=== PATIENT | male | born 1950 | race Caucasian/White ===

== ENCOUNTER 2018-02-03 23:13 | Inpatient (IN) | payer MEDICARE ==
[2018-02-04 00:07] LABS: #Basophils 0.1 thou/uL (0.0-0.2); #Eosinphils 0.3 thou/uL (0.0-0.7); #Monocytes 0.7 thou/uL (0.11-0.59); #Neutrophils 7.5 thou/uL (1.40-6.50); %Basophils 0.7 % (0.0-1.0); %Eosinophils 3.2 % (0.0-10.0); %Lymphocytes 10.2 % (21.0-51.0); %Monocytes 6.8 % (0.0-10.0); %Neutrophils 79.1 % (42.0-75.0); Hemoglobin 15.3 g/dL (14.0-18.0); Mean Corpuscular HGB CONC 32.5 g/dL (32.0-36.0); Mean Corpuscular Hemoglobin 30.7 pg (27.0-31.0); Mean Corpuscular Volume 94.5 fL (78.0-98.0); Mean Platelet Volume 6.2 fL (7.4-10.4); Platelet Count 325 thou/uL (130-400); RBC Distribution Width 12.9 % (11.5-14.5); White Blood Cell (WBC) Count 9.5 thou/uL (4.8-10.8)
--- NOTE | 2018-02-04 00:08 | RAD ---
PORTABLE CHEST: 02/03/18 COMPARISON: 04/26/16 study. HISTORY: Shortness of breath. Heart size is within normal limits. The aorta is tortuous. There is some parenchymal change in the ri ght base which has developed since the prior examination and still has the potential appearance that is more related to scar than an acute infiltrative process. IMPRESSION: Right lower lobe parenchymal change possibly atelectasis or infiltrate but also possibly scar. It is new as compared to the 2016 study. POS: JUANA
[2018-02-04 00:26] LABS: ALT (SGPT) 14 U/L (8-55); AST (SGOT) 19 U/L (5-34); Albumin 4.3 g/dL (3.4-4.8); Alkaline Phosphatase 94 U/L (40-150); Anion Gap 14 mmol/L (10-20); BUN (Urea Nitrogen) 20 mg/dL (8.4-25.7); Bilirubin, Total 0.4 mg/dL (0.2-1.2); CK (CPK) 45 U/L (30-200); Calc. Creatinine Clearance 0 mL/min (70-130); Calcium 9.6 mg/dL (7.8-10.44); Carbon Dioxide 21 mmol/L (23-31); Chloride 103 mmol/L (98-107); Estimated GFR-MDRD 87; Globulin 3.7 g/dL (2.4-3.5); Glucose 108 mg/dL (80-115); Lipase 17 U/L (8-78); Potassium 4.2 mmol/L (3.5-5.1); Sodium 134 mmol/L (136-145)
[2018-02-04 00:59] LABS: Bilirubin Negative (Negative); Blood, Urine Negative (Negative); Clarity CLEAR (Clear); Glucose, Urine (Dipstick) Negative (Negative); Leukocyte Negative (Negative); Nitrite Negative (Negative); Protein, Urine (Dipstick) Negative (Neg-Trace); Urobilinogen 0.2 mg/dL (0.2-1.0)
[2018-02-04] MEDS ORDERED: Fentanyl 100 MCG/2 ML VIAL ONE ×2 (03:10→20:44)
[2018-02-04] MEDS ORDERED: cefTRIAXone\\ROCEPHIN 2 GM VIAL ONE (04:03)
[2018-02-04 07:47] VITALS: BMI 25.8
--- NOTE | 2018-02-04 07:50 | CT ---
CT ANGIO CHEST PERFORMED WITH INTRAVENOUS CONTRAST ENHANCEMENT WITH 3D RECONSTRUCTIONS: HISTORY: Fever. Shortness of breath. History of previous injury. Previous films not available for compariso n. FINDINGS: Subsegmental atelectatic changes are seen in the lung bases. No evidence of any pleural effusion or pneumothorax. Multiple right-sided rib fractures are present, consistent with the history of trauma. The thoracic aorta is normal in caliber. There is fair pulmonary artery opacification. More peripheral vessels cannot be assessed, but I see no CT evidence for pulmonary embolus. IMPRESSION: 1. Multiple acute appearing right-sided rib fractures. No pneumothorax. Subsegmental atelectatic c hanges are seen in the lung bases. 2. No CT evidence for pulmonary embolus. POS: DAVID
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
[2018-02-04] MEDS ORDERED: Ondansetron ODT 4 MG TAB SL PRN (08:25)
[2018-02-04] MEDS ORDERED: HYDROcodone/Acetaminophen 5/325 mg Tablet PO PRN ×2 (08:25)
[2018-02-04] MEDS ORDERED: Ondansetron HCl/PF 4 MG/2 ML Vial IVP PRN ×3 (08:25→21:57)
[2018-02-04] MEDS ORDERED: Fentanyl 100 MCG/2 ML VIAL SLOW IVP PRN (08:27)
[2018-02-04] MEDS ORDERED: Sodium Chloride 0.45% 1,000 ML IV SCH (08:30)
[2018-02-04] MEDS: Piperacillin/Tazobactam 3.375 GM in Sodium Chloride 0.9% 100 ML IVPB SCH ×2 (10:24→19:04)
[2018-02-04] MEDS: D5 1/2 NS w/20 mEq KCL 1,000 ML IV SCH ×2 (10:25→19:04)
[2018-02-04] MEDS ORDERED: ISOVUE-370 76%-LOCM 1 ML ONE (11:40)
[2018-02-04] MEDS ORDERED: Lidocaine 1% PF 5 ML VIAL ONE (13:56)
[2018-02-04] MEDS ORDERED: PHENYLEPHRINE-NS 100 MCG/ML 10 ML SYRINGE ONE (13:56)
[2018-02-04] MEDS ORDERED: ePHEDrine/0.9% NaCl/PF SYRINGE 50 mg/10 ml ONE (13:56)
[2018-02-04] MEDS ORDERED: PROPOFOL 200 MG/20 ML VIAL ONE (13:56)
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
[2018-02-04] MEDS ORDERED: Bupivacaine/Epinephrine 0.25% 30 ML VIAL ONE (21:12)
[2018-02-04] MEDS ORDERED: Promethazine HCl 25 MG/ML VIAL SLOW IVP PRN (21:57)
[2018-02-04] MEDS ORDERED: Promethazine HCl 25 MG/ML VIAL IM PRN (21:57)
[2018-02-05] MEDS: Piperacillin/Tazobactam 3.375 GM in Sodium Chloride 0.9% 100 ML IVPB SCH ×4 (00:27→17:58)
[2018-02-05] MEDS: HYDROcodone/Acetaminophen 7.5/325 mg Tablet PO PRN ×3 (00:38→14:54)
[2018-02-05 05:25] LABS: Anion Gap 10 mmol/L (10-20); BUN (Urea Nitrogen) 14 mg/dL (8.4-25.7); Calc. Creatinine Clearance 96 mL/min (70-130); Calcium 8.4 mg/dL (7.8-10.44); Carbon Dioxide 24 mmol/L (23-31); Chloride 106 mmol/L (98-107); Estimated GFR-MDRD Greater than 90; Glucose 128 mg/dL (80-115); Potassium 3.9 mmol/L (3.5-5.1); Sodium 136 mmol/L (136-145)
[2018-02-05] MEDS: D5 1/2 NS w/20 mEq KCL 1,000 ML IV SCH ×2 (05:34→10:40)
[2018-02-05 06:27] LABS: Band 5 % (5-11); Hemoglobin 12.3 g/dL (14.0-18.0); Lymphocytes 10 % (21-51); MDiff Complete? YES; Mean Corpuscular HGB CONC 33.1 g/dL (32.0-36.0); Mean Corpuscular Hemoglobin 31.2 pg (27.0-31.0); Mean Corpuscular Volume 94.3 fL (78.0-98.0); Mean Platelet Volume 6.2 fL (7.4-10.4); Monocytes 1 % (0-10); Neutrophil 84 % (42-75); PLT Morphology Comment Appears Adequate; Platelet Count 234 thou/uL (130-400); RBC Distribution Width 12.8 % (11.5-14.5); Red Blood Cell (RBC) Count 3.94 mill/uL (4.70-6.10); White Blood Cell (WBC) Count 10.4 thou/uL (4.8-10.8)
[2018-02-05] MEDS ORDERED: Pramipexole Di-HCl 1 MG TAB PO SCH (09:00)
[2018-02-05] MEDS: Pramipexole Di-HCl 0.25 MG TAB PO SCH ×2 (09:03→20:45)
[2018-02-05] MEDS: Meloxicam 15 MG TAB PO SCH (09:03)
[2018-02-05] MEDS ORDERED: traMADol HCl 50 MG TAB PO PRN (09:41)
[2018-02-05] MEDS ORDERED: Sodium Chloride 0.9% 500 ML IVPB SCH (09:45)
[2018-02-05] MEDS: traMADol HCl 50 MG TAB PO PRN (10:38)
[2018-02-05] MEDS ORDERED: Calcium Carbonate 500 MG ChewTAB PO PRN (14:41)
--- NOTE | 2018-02-05 16:01 | PDOC.GSPN ---
Surgery Progress Note: Subj - Subjective Narrative: Feels much better today. Ambulating in halls and no longer feels sick like he was before his I&D. YARI has serosanguineous drainage. The swelling and tenderness in the right chest wall is diminished and the skin is less red. He has been afebrile with normal vital signs. YAIR output last shift was 40 mL's. Urine output was 875. His hematocrit came down from 47 to37 postoperatively which likely reflects dehydration on admission since blood loss was minimal. We' ll Hep-Lock his IV and teach his family YAIR drain care for possible discharge tomorrow. Culture results are still pending. Surgery Progress Note: Obj - Vital signs Vital signs: Vital Signs - Most Recent Temp Pulse Resp BP Pulse Ox 97.8 F 51 L 16 106/65 96 02/05/18 12:37 02/05/18 12:37 02/05/18 12:37 02/05/18 12:37 02/05/18 12:37 Surgery Progress Note: Results - Labs Result Diagrams: 02/05/18 04:56 02/05/18 04:56 Lab results: Laboratory Results - last 24 hr 02/05/18 02/05/18 04:56 04:56 WBC 10.4 RBC 3.94 L Hgb 12.3 L Hct 37.1 L MCV 94.3 MCH 31.2 H MCHC 33.1 RDW 12.8 Plt Count 234 MPV 6.2 L Neutrophils % (Manual) 84 H Band Neuts % (Manual) 5 Lymphocytes % (Manual) 10 L Monocytes % (Manual) 1 Plt Morphology Comment Appears Adequate Sodium 136 Potassium 3.9 Chloride 106 Carbon Dioxide 24 Anion Gap 10 BUN 14 Creatinine 0.80 Estimated GFR (MDRD) Greater than 90 Glucose 128 H Calcium 8.4
[2018-02-05] MEDS: Famotidine 20 MG TAB PO SCH (17:02)
[2018-02-06] MEDS: Piperacillin/Tazobactam 3.375 GM in Sodium Chloride 0.9% 100 ML IVPB SCH ×3 (00:16→11:48)
[2018-02-06] MEDS: traMADol HCl 50 MG TAB PO PRN ×2 (05:41→09:42)
[2018-02-06] MEDS: Pramipexole Di-HCl 0.25 MG TAB PO SCH (09:36)
[2018-02-06] MEDS: Famotidine 20 MG TAB PO SCH (09:36)
[2018-02-06] MEDS: Meloxicam 15 MG TAB PO SCH (10:48)
[2018-02-06] MEDS ORDERED: diphenhydrAMINE 12.5 MG/5 ML UDCUP PO PRN (11:27)
[2018-02-06 12:43] VITALS: BP 106/63; TEMP 97.7
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
== END 2018-02-06 15:37 | disposition home or self-care (01) | DRG 908 ==
LOC: ERS 23:13 → SURG A 02-04 05:05 → OBSVTOIN 02-04 11:55
PROVIDERS: ADMIT Surgery; ATTEND Surgery
PROC: 0J960ZZ Drainage of Chest Subcutaneous Tissue and Fascia, Open Approach (ICD-10-PCS; principal; 2018-02-04)
DX: T79.2XXA Traumatic secondary and recurrent hemorrhage and seroma, initial encounter (principal); L03.313 Cellulitis of chest wall; E86.0 Dehydration; Z72.0 Tobacco use; Z98.84 Bariatric surgery status; Z98.890 Other specified postprocedural states
CPT/HCPCS: 36415; 71045; 71275; 74177; 80048; 80053; 81003; 82550; 83605; 83690; 85025; 87040; 87070; 87077; 87186; 87205; 94760; 96361; 96365; 96366; 96375; J0696; J2001; J2270; J2543; J2704; J3010; J3370; J7050

== ENCOUNTER 2018-02-07 13:18 | Emergency (ER) | payer MEDICARE ==
--- NOTE | 2018-02-07 14:58 | RAD ---
CHEST 1 VIEW: Date: 02/07/18 COMPARISON: 02/03/18. HISTORY: Tube placement. Drain to surgical site on right chest not draining correctly. FINDINGS: Portable upright chest demonstrates a percutaneous catheter which appears to be within the right ches t soft tissues. Stable aeraetion of the lung parenchyma when compared to the prior exam. Small right- sided pleural effusion suspected. No pneumothorax. Stable configuration of the cardiac silhouette. IMPRESSION: Catheter in right thoracic chest wall. POS: JUANA
== END 2018-02-07 15:27 | disposition home or self-care (01) ==
LOC: ERS 13:18
DX: T82.897A Other specified complication of cardiac prosthetic devices, implants and grafts, initial encounter (principal); F17.220 Nicotine dependence, chewing tobacco, uncomplicated; Z79.899 Other long term (current) drug therapy
CPT/HCPCS: 71045